=== PATIENT | male | born 1995 | race Caucasian/White ===

== ENCOUNTER 2024-07-24 21:32 | Emergency (ER) | payer OTHER, SELFPAY ==
--- NOTE | ~2024-07-24 | XR_ITS ---
EXAMINATION: XR chest 1V portable DATE: 07/24/2024 22:17 INDICATION: Shortness of breath. TECHNIQUE: A single frontal view of the chest was obtained. COMPARISON: None. FINDINGS: There is no pneumonia, pleural effusion, or pneumothorax. The heart size is normal. IMPRESSION: 1. No acute cardiopulmonary disease. Reviewed, dictated and finalized at location A. FIL[employer] OPERATOR
--- NOTE | ~2024-07-24 | CT_ITS ---
EXAMINATION: CT brain wo con DATE: 07/24/2024 22:17 INDICATION: Fecal incontinence. Weakness. TECHNIQUE: Computed tomography (CT) of the head was performed without intravenous contrast. The mA wa s adjusted according to patient size. Iterative reconstruction technique was employed. The dose-lengt h product was 681.00 mGy-cm. COMPARISON: None FINDINGS: There is no intracranial hemorrhage, acute infarction, or abnormal intracranial mass lesion . The ventricles are normal in size. The orbits are normal. There is mild mucosal thickening in the p aranasal sinuses. The mastoid air cells are normal. IMPRESSION: 1. Normal brain. Reviewed, dictated and finalized at location A. GER QUANTITATIVE IMPRESSION: 1. Normal brain.
[2024-07-24 21:34] VITALS: BP 135/84; PULSE 91; RESP 18; TEMP 36.6; O2SAT 97
--- NOTE | 2024-07-24 21:35 | PC.NURSE ---
LUNGS CTAB. WOB NON LABORED. PATIENT REPORTS THAT HE IS SHORT OF BREATH. SPO2 READING 98-100%
--- NOTE | 2024-07-24 21:41 | ED_ITS ---
HPI - SOB/Dyspnea General Chief Complaint: Shortness of Breath/Dyspnea Stated Complaint: Shortness of breath Time Seen by Provider: 07/24/24 21:40 Source: patient Mode of arrival: ambulatory Limitations: no limitations History of Present Illness HPI Narrative: 29-year-old male with prior history of polysubstance abuse, alcoholism( quit 5 years ago) presents to the ED with a 1 day history of -- fecal incontinence. The patient was sleeping and when he woke up he noted that he had soiled himself. Subsequently while taking a bath he had 2 more episodes of fecal incontinence -- generalized weakness -- blurred vision. he has fluctuation of his blurred vision. -- shortness of breath. -- chest pain which is intermittent. -- nausea and vomiting. No abdominal pain. No diarrhea. The patient presented with shaking and diaphoresis. Vitals are stable. Oxygen saturation is 97% on room air with this respiratory rate of 18. MD elicited complaint: shortness of breath and chest pain Onset (ago): day(s) ( One day) Severity: moderate Exacerbating factors: nothing Relieving factors: nothing Associated symptoms: chest pain, cough and nausea/vomiting Treatment prior to arrival: none Related Data Home oxygen amount: none Home Medications ?Medication ?Instructions ?Recorded ?Confirmed ?Last Taken ?Type No Home Medications 07/24/24 07/24/24 Unknown History Allergies Allergy/AdvReac Type Severity Reaction Status Date / Time No Known Allergies Allergy Verified 07/24/24 22:53 Review of Systems 2 Constitutional: Constitutional: Reports as per HPI, Reports no additional constitutional complaints and Reports weakness Eyes: Eyes: Reports as per HPI and Reports no additional eye complaints C omments: Intermittent blurred vision ENT: Reports system reviewed and no additional complaints, except as documented and Reports as per HPI Cardiovascular: Cardiovascular: Reports as per HPI, Reports no additional cardiovascular complaints and Reports chest pain Respiratory: Respiratory: Reports as per HPI, Reports no additional respiratory complaints and Reports dyspnea Gastrointestinal: Gastrointestinal: Reports as per HPI, Reports no additional gastrointestinal complaints, Reports nausea and Reports vomiting Genitourinary: Genitourinary: Reports no additional male genitourinary complaints Musculoskeletal: Musculoskeletal: Reports no additional musculoskeletal complaints Integumentary/Breasts: Skin/Breast: Reports system reviewed and no additional complaints, except as docu and Reports as per HPI Neurologic: Reports system reviewed and no additional complaints, except as documented and Reports as per HPI Psychiatric: Psychiatric: Reports anxiety Endocrine: Endocrine: Reports no additional endocrine complaints Hematologic/Lymphatic: Hematologic/Lymphatic: Reports no additional hematologic/lymphatic complaints Allergic/Immunologic: Allergic/Immunologic: Reports no additional allergic/immunologic complaints Exam 2 Narrative: vitals are stable. Afebrile. On presentation the patient was shaking with diaphoresis. Currently the patient is afebrile in no distress. Const: General: no acute distress Nutritional Appearance: well nourished Orientation/consciousness: patient oriented x3 Limitations: no limitations HENMT: Head: normal to inspection Ears: external ears normal F mary/Nose/Sinus: Normal external nose present Face and sinus: normal facial exam Mouth: Yes Normal oral and palatal mucosa present Throat: posterior oropharynx normal Eyes: Conjunctivae: conjunctivae normal Pupils: Equal, round and reactive pupils present EOM: EOMs intact bilaterally Direct Ophthalmoscopy: no photophobia Neck: Neck: normal visual inspection, no lymphadenopathy and no meningeal signs Chest: Chest palpation & inspection: normal inspection of the chest Resp: Effort & Inspection: normal respiratory effort Auscultation: clear to auscultation bilaterally Cardio: Rate: regular rate Rhythm: regular rhythm GI: GI Palp: Yes Soft to palpation Other: No tenderness/ rigidity /rebound : General: Yes no CVA tenderness Back/Spine/Pelvis: Back: no CVA tenderness Skin: General skin exam: normal color Rashes: no rashes Wounds: no wounds Neuro: General: patient oriented x3, moves all extremities, no meningeal signs, no focal motor deficits and CN's II-XI intact bilaterally Cranial nerves: Yes Nystagmus not present Speech: normal speech Gait exam (Neuro): Normal gait present Extrem: General: normal to inspection and no clubbing, cyanosis or edema Psych: Mental Status: mental status grossly normal Affect: Anxious affect present Attitude: cooperative Course Course Emergency Course: Fecal incontinence. No history of seizures. CT of the head did not show any acute findings. anxiety/panic attack with chest pain, shortness of breath, blurred vision, tremulousness. Chest x-ray did not show any acute findings. EKG was unremarkable. patient has had prior history of anxiety and panic attacks upper respiratory tract infection-- patient tested negative for influenza/ RSV / COVID. Vital Signs Vital signs: Vital Signs Temperature 36.6 C 07/24/24 21:34 Pulse Rate 91 07/24/24 21:34 Respiratory Rate 18 07/24/24 21:34 Blood Pressure 135/84 07/24/24 21:34 Pulse Oximetry 97 07/24/24 21:34 Oxygen Delivery Room Air 07/24/24 21:34 Temperature 36.6 C 07/24/24 21:34 Pulse Rate 91 07/24/24 21:34 Respiratory Rate 18 07/24/24 21:34 Blood Pressure 135/84 07/24/24 21:34 Pulse Oximetry 97 07/24/24 21:34 Oxygen Delivery Room Air 07/24/24 21:34 MDM - SOB/Dyspnea MDM Narrative Medical decision making narrative: Fecal incontinence panic attack upper respiratory tract infection Differential Diagnosis Differential diagnosis: Likely pulmonary embolism Lab Data Attestation: I reviewed the patient's lab results. 07/24/24 22:22 07/24/24 22:22 Labs: Lab Results 07/24/24 Range/Units 22:22 WBC 8.9 (4.8-10.8) K/mm3 RBC 5.53 (4.70-6.10) M/mm3 Hgb 16.4 (14.0-18.0) g/dL Hct 46.8 (40.0-54.0) % MCV 84.6 (78.0-102.0) fL MCH 29.7 (27.0-31.0) pg MCHC 35.0 (32-36) g/dL RDW 12.0 (11.6-14.4) % Plt Count 237 (150-420) K/mm3 MPV 10.9 (8.7-11.0) fl Immature Gran % (Auto) 0.1 H (0.0-0.0) % Neut % (Auto) 51.8 (50.0-70.0) % Lymph % (Auto) 37.3 (18.0-42.0) % [place] % (Auto) 9.0 (2.0-11.0) % Eos % (Auto) 1.5 (1.0-6.0) % Baso % (Auto) 0.3 (0.0-1.0) % Lymph # (Auto) 3.32 (1.10-4.50) K/mm3 [place] # (Auto) 0.80 (0.10-0.90) K/mm3 Eos # (Auto) 0.13 (0.02-0.50) K/mm3 Baso # (Auto) 0.03 (0.00-0.10) K/mm3 Abs Immat Gran (auto) 0.01 H (0.00-0.00) K/mm3 Absolute Neuts (auto) 4.60 (1.70-7.20) K/mm3 Absolute Nucleated RBC 0.00 (0.00-0.00) K/mm3 Nucleated RBC % 0.0 (0-0.0) % Sodium 140 (136-145) mmol/L Potassium 3.5 (3.5-5.1) mmol/L Chloride 104 (98-108) mmol/L Carbon Dioxide 26 (21-32) mmol/L Anion Gap 10 (4-12) mmol/L BUN 14 (7-18) mg/dL Creatinine 1.00 (0.70-1.30) mg/dL Estim Creat Clear Calc 144 ml/min Estimated GFR > 60 (59 - ) Glucose 81 (70-99) mg/dL Calculated Osmolality 289 (285-295) mOsm/kg Lactic Acid 1.1 (0.4-2.0) mmol/L Calcium 9.1 (8.5-10.1) mg/dL Total Bilirubin 0.6 (0.00-1.00) mg/dL AST 15 (15-37) U/L ALT 22 (16-63) U/L Alkaline Phosphatase 97 (46-116) U/L Troponin I 4.4 (0.00-60.4) ng/L Total Protein 7.3 (6.4-8.2) g/dL Albumin 3.6 (3.4-5.0) g/dL Lipase 34 (16-77) U/L Influenza A (RT-PCR) Negative (Negative) Influenza B (RT-PCR) Negative (Negative) RSV (RT-PCR) Negative (Negative) SARS-CoV-2 RNA (RT-PCR) Negative (Negative) ECG Data EKG #1: ECG completion date: 07/24/24 ECG completion time: 22:11 Interpretation: normal sinus rhythm. Normal axis. No ST elevation. Discharge Plan Discharge Clinical Impression: Panic attack Fecal incontinence Qualifiers: Fecal incontinence type: unspecified Qualified Code(s): R15.9 - Full incontinence of feces Upper respiratory infection Qualifiers: URI type: unspecified URI Qualified Code(s): J06.9 - Acute upper respiratory infection, unspecified Patient Disposition: Home, Self-Care Condition: Stable Instructions: Antibiotic Form, Panic Attack (ED), Bowel Incontinence (ED) Patient Language: Mongolian Prescriptions: No Action No Home Medications Follow-up/Referrals: UNKNOWN,DOCTOR [Primary Care Provider] - Stand Alone Forms: Work/School Release IP Time of Disposition: 23:54
--- NOTE | 2024-07-24 21:55 | PC.NURSE ---
PATIENT IS NO LONGER HAVING CHILL SPELLS. NO LONGER DIAPHORETIC.
--- NOTE | 2024-07-24 21:59 | ECG_ITS ---
Test Date: 2024-07-24 22:11:28 Measurements Intervals [place] Rate: 81 P: 27 CT: 176 QRS: 36 QRSD: 93 T: 31 QT: 367 QTc: 427 Interpretive Statements SINUS RHYTHM No previous ECG available for comparison Electronically Signed On 07-25-2024 15:54:57 [employer] SUPERINTENDENT by Zain Miranda M.D.
--- NOTE | 2024-07-24 22:02 | PC.NURSE ---
ARNOLDO POOLE, TO ROOM TO COMPLETE EKG
--- NOTE | 2024-07-24 22:07 | PC.NURSE ---
LAB AT THE BEDSIDE
[2024-07-24 22:25] LABS: Basophils Absolute Auto 0.03 K/mm3 (0.00-0.10); Basophils Percent Auto 0.3 % (0.0-1.0); Eosinophils Absolute Auto 0.13 K/mm3 (0.02-0.50); Eosinophils Percent Auto 1.5 % (1.0-6.0); Hematocrit 46.8 % (40.0-54.0); Hemoglobin 16.4 g/dL (14.0-18.0); Immature Granulocyte Absolute 0.01 K/mm3 (0.00-0.00); Immature Granulocyte Percent A 0.1 % (0.0-0.0); Lymphocytes Absolute Auto 3.32 K/mm3 (1.10-4.50); Lymphocytes Percent Auto 37.3 % (18.0-42.0); Mean Corpuscular Hemoglobin 29.7 pg (27.0-31.0); Mean Corpuscular Volume 84.6 fL (78.0-102.0); Mean Platelet Volume 10.9 fl (8.7-11.0); Neutrophils Percent Auto 51.8 % (50.0-70.0); Platelet Count Result 237 K/mm3 (150-420); Red Blood Count 5.53 M/mm3 (4.70-6.10); White Blood Count 8.9 K/mm3 (4.8-10.8)
[2024-07-24 22:45] LABS: Alanine Aminotransferase 22 U/L (16-63); Albumin Level 3.6 g/dL (3.4-5.0); Alkaline Phosphatase 97 U/L (46-116); Anion Gap 10 mmol/L (4-12); Aspartate Amino Transferase 15 U/L (15-37); Bilirubin,Total 0.6 mg/dL (0.00-1.00); Blood Urea Nitrogen 14 mg/dL (7-18); Calcium 9.1 mg/dL (8.5-10.1); Carbon Dioxide 26 mmol/L (21-32); Chloride 104 mmol/L (98-108); Estimated CRCL calculation 144 ml/min; Estimated Glomerular Filt Rate > 60; Glucose 81 mg/dL (70-99); Lactic Acid Reflex 1.1 mmol/L (0.4-2.0); Lipase 34 U/L (16-77); Osmolality Calculated 289 mOsm/kg (285-295); Potassium 3.5 mmol/L (3.5-5.1); Sodium 140 mmol/L (136-145); Total Protein 7.3 g/dL (6.4-8.2); Troponin I 4.4 ng/L (0.00-60.4)
[2024-07-24 23:10] LABS: Influenza A QL RT-PCR Negative (Negative); Influenza B QL RT-PCR Negative (Negative); RSV RNA, RT-PCR Negative (Negative); SARS-CoV-2 RNA PCR Negative (Negative)
--- NOTE | 2024-07-24 23:17 | PC.NURSE ---
[facility] REPORTS THAT HE WAS ADDICTED TO [facility]. WOULD PREFER NOT TO TAKE THE MEDICATION. WILL NOTIFY DR BECK AND RETURN MEDICATION TO [facility]
[2024-07-25 00:34] VITALS: BP 128/82; PULSE 82; RESP 18; O2SAT 98
== END 2024-07-25 00:34 | disposition home or self-care (01) ==
PROVIDERS: Emergency Provider Internal Medicine Critical Care Medicine
DX: F41.0 Panic disorder [episodic paroxysmal anxiety] (principal); R15.9 Full incontinence of feces; J06.9 Acute upper respiratory infection, unspecified; Z20.822 Contact with and (suspected) exposure to COVID-19
CPT/HCPCS: 36415; 70450; 71045; 80053; 83605; 83690; 84484; 85025; 87637; 93005; 96374; 99284